=== PATIENT | female | born 1995 | race American Indian/Alaskan Native ===

== ENCOUNTER 2019-10-13 10:17 | Emergency (ER) | payer OTHER ==
[2019-10-13 10:28] VITALS: BP 126/62
--- NOTE | 2019-10-13 11:33 | Emergency Department Report ---
{null, ED Eye Problem HPI - General Chief complaint: Eye Problems Stated complaint: EYE SWOLLEN Time Seen by Provider: 10/13/19 11:29 Source: patient Mode of arrival: Ambulatory Limitations: No Limitations - History of Present Illness Initial comments: pt is a 24 yo female who presents to the ED with c/o right eyelid swelling that began two days ago. she denies getting anything in the eye. she denies any vision changes. no contact lens use. pmhx none. allergy: none. - Related Data Previous Rx's Medication Instructions Recorded Last Taken Type Cephalexin [Keflex] 500 mg PO Q12H 10 Days #20 capsule 07/28/18 Unknown Rx Ibuprofen [Motrin 800 MG tab] 800 mg PO Q8HR PRN #30 tablet 07/28/18 Unknown Rx Sulfamethoxazole/Trimethoprim 1 each PO BID 10 Days #20 tablet 07/28/18 Unknown Rx [Bactrim DS TAB] Erythromycin [Erythromycin Ophth 1 applicatio OU QID #1 tube 10/13/19 Unknown Rx Oint] Allergies Allergy/AdvReac Type Severity Reaction Status Date / Time No Known Allergies Allergy Unverified 07/28/18 01:57 ED Review of Systems ROS: Stated complaint: EYE SWOLLEN Other details as noted in HPI Comment: All other systems reviewed and negative ED Past Medical Hx - Past Medical History Previous Medical History?: No - Surgical History Past Surgical History?: No - Social History Smoking Status: Never Smoker - Medications Home Medications: Home Medications Medication Instructions Recorded Confirmed Last Taken Type Cephalexin [Keflex] 500 mg PO Q12H 10 Days #20 capsule 07/28/18 Unknown Rx Ibuprofen [Motrin 800 MG tab] 800 mg PO Q8HR PRN #30 tablet 07/28/18 Unknown Rx Sulfamethoxazole/Trimethoprim 1 each PO BID 10 Days #20 tablet 07/28/18 Unknown Rx [Bactrim DS TAB] Erythromycin [Erythromycin Ophth 1 applicatio OU QID #1 tube 10/13/19 Unknown Rx Oint] ED Physical Exam - General Limitations: No Limitations General appearance: alert, in no apparent distress - Head Head exam: Present: atraumatic, normocephalic - Eye Eye exam: Present: PERRL, EOMI, other (right eyelid edema and erythema, there is a small internal hordeolum, no drainage, no signs of ulceration, no visualized foreign bodies). Absent: conjunctival injection - ENT ENT exam: Present: mucous membranes moist - Neurological Exam Neurological exam: Present: alert, oriented X3 - Psychiatric Psychiatric exam: Present: normal affect, normal mood - Skin Skin exam: Present: warm, dry, intact ED Course Vital Signs 10/13/19 10:23 Temperature 98.7 F Pulse Rate 97 H Respiratory 20 Rate Blood Pressure 126/62 O2 Sat by Pulse 94 Oximetry ED Medical Decision Making - Medical Decision Making pt is a 24 yo female who presents to the ED with c/o right eyelid swelling that began two days ago. she denies getting anything in the eye. she denies any vision changes. no contact lens use. pmhx none. allergy: none. VSS. on exam: right eyelid edema and erythema, there is a small internal hordeolum, no drainage, no signs of ulceration, no visualized foreign bodies. examination consistent with blepharitis. normal EOMI, no signs of entrapment, no pain with eye ROM. pt given prescription for erythromycin ophthalmic ointment. advised pt to please use medication as prescribed. wash your hands frequently. avoid rubbing the eye. follow up with a primary care doctor. return to the emergency room for any new or worsening symptoms. - Differential Diagnosis conjunctivitis, blepharitis, iritis, chalazion, hordeolum, orbital cellulit Critical care attestation.: If time is entered above; I have spent that time in minutes in the direct care of this critically ill patient, excluding procedure time. ED Disposition Clinical Impression: Blepharitis Qualifiers: Blepharitis type: unspecified type Laterality: right Eyelid: upper Qualified Code(s): H01.001 - Unspecified blepharitis right upper eyelid Internal hordeolum Qualifiers: Laterality: right Eyelid: upper Qualified Code(s): H00.021 - Hordeolum internum right upper eyelid Disposition: -01 TO HOME OR SELFCARE Is pt being admited?: No Does the pt Need Aspirin: No Condition: Stable Instructions: Stye (ED), Blepharitis (ED) Additional Instructions: advised pt to please use medication as prescribed. wash your hands frequently. avoid rubbing the eye. follow up with a primary care doctor. return to the emergency room for any new or worsening symptoms. Prescriptions: Erythromycin [Erythromycin Ophth Oint] 1 applicatio OU QID #1 tube Referrals: EUGENIO BARKER MD [Staff Physician] - 2-3 Days [facility] [Outside] - 2-3 Days [facility] [place]] - 2-3 Days Forms: Work/School Release Form(ED) Time of Disposition: 11:57 Print Language: [place] }
== END 2019-10-13 12:21 | disposition home or self-care (01) ==
LOC: ED 10:17
DX: H01.003 Unspecified blepharitis right eye, unspecified eyelid (principal); H00.023 Hordeolum internum right eye, unspecified eyelid; Z79.899 Other long term (current) drug therapy
CPT/HCPCS: 99281